=== PATIENT | female | born 2000 | race Caucasian/White ===

== ENCOUNTER 2019-09-13 16:52 | Emergency (ER) | payer OTHER, SELFPAY ==
[~2019-09-13] VITALS: Ht 162.6 cm; Wt 89.1 kg
[2019-09-13 17:03] VITALS: BP 132/81
[2019-09-13] MEDS ORDERED: DEXAMETHASONE 4 MG TABLET PO ONE (17:30)
[2019-09-13] MEDS ORDERED: DEXAMETHASONE 4 MG TABLET ONE (17:34)
== END 2019-09-13 17:47 | disposition home or self-care (01) ==
LOC: ED 17:30
DX: B34.9 Viral infection, unspecified (principal); R51 Headache; R11.0 Nausea; M79.10 Myalgia, unspecified site; R42 Dizziness and giddiness; R19.7 Diarrhea, unspecified
CPT/HCPCS: 93005; 99283

== ENCOUNTER 2020-12-19 11:59 | Emergency (ER) | payer OTHER ==
[~2020-12-19] VITALS: Ht 162.6 cm; Wt 85.2 kg
[2020-12-19] MEDS ORDERED: ONDANSETRON ODT 4 MG PO ONE (12:30)
--- NOTE | 2020-12-19 12:37 | NUR ---
+COVID TEST 12/17. N/V/D AND DIZZINESS INCREASED THIS MORNING. PT TO ROOM WITH STEADY GAIT. POSTIONED TO COMFORT. ATTACHED TO MONITORS. VSS. SOMERS.
--- NOTE | 2020-12-19 12:45 | NUR ---
PT MEDICATED PER EMAR. XR AT BEDSIDE.
--- NOTE | 2020-12-19 13:13 | NUR ---
PT GIVEN WATER FOR PO CHALLENGE. ALONNOttoniel VSS.
[2020-12-19 13:14] VITALS: BP 112/67
--- NOTE | 2020-12-19 13:29 | NUR ---
PT TOLERATING PO INTAKE
== END 2020-12-19 14:01 | disposition home or self-care (01) ==
LOC: ED 13:25
DX: U07.1 COVID-19 (principal); J06.9 Acute upper respiratory infection, unspecified; Z88.0 Allergy status to penicillin
CPT/HCPCS: 71045; 99283; Q0162